=== PATIENT | male | born 1985 ===

== ENCOUNTER 2020-07-20 15:08 | Outpatient (CLI) | payer OTHER ==
--- NOTE | 2020-07-20 16:49 | Ultrasound Report ---
ULTRASOUND SCROTUM INDICATION / CLINICAL INFORMATION: RIGHT TESTICULAR PAIN. COMPARISON: None available. FINDINGS -- RIGHT TESTIS: Size = 4.4 x 2.1 x 2.8 cm. - Appearance: There is microlithiasis. - Cyst or Mass: None. - Color Doppler Flow: No significant abnormality. EPIDIDYMIS: Epididymal head cysts are present, largest measuring up to 9 mm. Additionally, there is a 7 mm rounded area in the epididymal tail, isoechoic to the adjacent epididymal parenchyma. HYDROCELE: None. VARICOCELE: None demonstrated. FINDINGS -- LEFT TESTIS: Size = 4.3 x 2.0 x 3.1 cm. - Appearance: There is microlithiasis. - Cyst or Mass: None. - Color Doppler Flow: No significant abnormality. EPIDIDYMIS: 1.3 cm epididymal head cyst. HYDROCELE: None. VARICOCELE: None demonstrated. ADDITIONAL FINDINGS: None. IMPRESSION: 1. 7 mm rounded isoechoic area in the epididymal tail. This is most likely benign and may reflect an adenomatoid tumor. Urology consultation is recommended. 2. Benign bilateral epididymal head cysts. 3. Testicular microlithiasis. This is a nonspecific finding and may be benign, though there is a repo rted association with germ cell tumors. Consider continued clinical and/or sonographic surveillance, as clinically indicated. Signer Name: Braulio Caballero MD Signed: 07/20/2020 4:45 PM Workstation Name: [id number]
== END 2020-07-20 15:09 | disposition home or self-care (01) ==
LOC: US 15:08
PROVIDERS: ATTEND Nurse Practitioner Family
DX: N50.3 Cyst of epididymis (principal)
CPT/HCPCS: 93975

== ENCOUNTER 2021-08-10 11:37 | Emergency (ER) | payer OTHER ==
[2021-08-10] MEDS ORDERED: CYCLOBENZAPRINE 10 MG TAB PO ONE (14:33)
[2021-08-10] MEDS ORDERED: ACETAMINOPHEN W/CODEINE 300-30 MG TAB PO ONE (14:33)
[2021-08-10] MEDS ORDERED: predniSONE 20 MG TAB PO ONE (14:33)
[2021-08-10] MEDS ORDERED: KETOROLAC 10 MG TAB PO ONE (14:33)
--- NOTE | 2021-08-10 15:48 | XRay Report ---
Lumbar spine INDICATION: Fall with pain FINDINGS: The lumbar spine alignment appears normal. No acute fracture or dislocation is identified. Sacrum and sacroiliac joints appear normal. Signer Name: Lamin Ayala MD Signed: 08/10/2021 3:43 PM Workstation Name: [id number]
--- NOTE | 2021-08-10 16:00 | Emergency Department Report ---
ED Back Pain/Injury HPI - General Chief Complaint: Back Pain/Injury Stated Complaint: BACK PAIN Time Seen by Provider: 08/10/21 14:13 Source: patient Limitations: No Limitations - History of Present Illness Initial Comments: 36-year-old [place] male presents to the emergency department with 1-1/2-week history of worsening lower back pain. He states that he fell 1-1/2 weeks ago and pain has been getting worse since then. He denies any saddle paresthesia or urinary symptoms. He states that he was seen by chiropractor yesterday without improvement of symptoms. He states that pain is mostly to the left side. He denies fever, abdominal pain. MD Complaint: back pain, back injury, fall -: Gradual, week(s) Similar Symptoms Previously: No (1.5) Place: home Radiation: left leg Severity: severe Severity scale (0 -10): 10 Quality: burning, aching Consistency: constant Worsens With: movement, walking Context: fall Associated Symptoms: denies: weakness, chest pain, numbness, difficulty walking, cough, difficulty urinating, diaphoresis, incontinence, fever/chills, constipat ion, abdominal pain, loss of appetite, malaise, nausea/vomiting, rash, seizure, shortness of breath, syncope - Related Data Previous Rx's Medication Instructions Recorded Last Taken Type Cyclobenzaprine [Flexeril] 10 mg PO TID PRN #21 tab 08/10/21 Unknown Rx Lidocaine [Lidoderm] 1 each TP Q12HR PRN #10 patch 08/10/21 Unknown Rx Naproxen [Naprosyn] 500 mg PO BID #14 tab 08/10/21 Unknown Rx Allergies Allergy/AdvReac Type Severity Reaction Status Date / Time No Known Allergies Allergy Unverified 07/20/20 15:08 ED Review of Systems ROS: Stated complaint: BACK PAIN Other details as noted in HPI Comment: All other systems reviewed and negative Constitutional: denies: chills, diaphoresis, fever, malaise, weakness Eyes: denies: eye pain ENT: denies: ear pain, throat pain Respiratory: denies: cough, shortness of breath, SOB with exertion Cardiovascular: denies: chest pain, palpitations, dyspnea on exertion, ortho pnea, edema, syncope Endocrine: no symptoms reported Gastrointestinal: denies: abdominal pain, nausea, vomiting, diarrhea, hematemesis, melena, hematochezia Genitourinary: denies: urgency, dysuria, frequency, hematuria, discharge, testicular pain Musculoskeletal: back pain. denies: joint swelling, arthralgia, myalgia Neurological: denies: headache, weakness Psychiatric: denies: anxiety, depression Hematological/Lymphatic: denies: easy bleeding, easy bruising ED Past Medical Hx - Medications Home Medications: Home Medications Medication Instructions Recorded Confirmed Last Taken Type Cyclobenzaprine [Flexeril] 10 mg PO TID PRN #21 tab 08/10/21 Unknown Rx Lidocaine [Lidoderm] 1 each TP Q12HR PRN #10 patch 08/10/21 Unknown Rx Naproxen [Naprosyn] 500 mg PO BID #14 tab 08/10/21 Unknown Rx ED Physical Exam - General Limitations: No Limitations General appearance: alert, in no apparent distress - Head Head exam: Present: atraumatic, normocephalic - Eye Eye exam: Present: normal appearance. Absent: conjunctival injection - Neck Neck exam: Present: normal inspection, full ROM. Absent: tenderness - Respiratory Respiratory exam: Present: normal lung sounds bilaterally. Absent: respiratory distress, wheezes, rales, rhonchi, stridor, chest wall tenderness, accessory muscle use - Cardiovascular Cardiovascular Exam: Present: regular rate, normal heart sounds - GI/Abdominal GI/Abdominal exam: Present: soft, normal bowel sounds. Absent: distended, tenderness, guarding, rebound, rigid - Extremities Exam Extremities exam: Present: normal inspection, full ROM - Back Exam Back exam: Present: normal inspection, full ROM, tenderness (Left lower), paraspinal tenderness. Absent: CVA tenderness (R), CVA tenderness (L), vert ebral tenderness - Neurological Exam Neurological exam: Present: alert, oriented X3 - Psychiatric Psychiatric exam: Present: normal affect, normal mood - Skin Skin exam: Present: warm, dry, intact, normal color ED Course Vital Signs 08/10/21 08/10/21 08/10/21 12:27 15:12 16:34 Temperature 98.1 F Pulse Rate 77 91 H Respiratory 16 14 20 Rate Blood Pressure 141/95 Blood Pressure 123/74 [Left] O2 Sat by Pulse 95 98 Oximetry ED Medical Decision Making - Radiology Data Radiology results: report reviewed X-ray lumbar sacral spine The lumbar spine alignment appears normal. No acute fracture or dislocation is identified. Sacral iliac joint appears normal. - Medical Decision Making 36-year-old [place] male presents to the emergency department with 1-1/2-week history of worsening lower back pain. He states that he fell 1-1/2 weeks ago and pain has been getting worse since then. He denies any saddle paresthesia or urinary symptoms. He states that he was seen by chiropractor yesterday without improvement of symptoms. He states that pain is mostly to the left side. He denies fever, abdominal pain X-ray of lumbar spine without any acute findings noted. Patient will be treated with anti-inflammatories and muscle relaxant. Pain improved after medication given in the ER. He was advised to take medication as prescribed and follow-up with primary care provider for further evaluation and if no improvement or worsening symptoms. He verbalized understanding of and agreement with plan of care. Critical care attestation.: If time is entered above; I have spent that time in minutes in the direct care of this critically ill patient, excluding procedure time. ED Disposition Clinical Impression: Back pain Qualifiers: Back pain location: low back pain Chronicity: acute Back pain laterality: left Sciatica presence: without sciatica Qualified Code(s): M54.50 - Low back pain, unspecified Disposition: 01 HOME / SELF CARE / HOMELESS Is pt being admited?: No Does the pt Need Aspirin: No Condition: Stable Instructions: Acute Back Pain, Adult, Pain Without a Known Cause Additional Instructions: Take medications as prescribed. Follow-up with primary care provider if no improvement or worsening symptoms. Prescriptions: Cyclobenzaprine [Flexeril] 10 mg PO TID PRN #21 tab PRN Reason: Muscle Spasm Lidocaine [Lidoderm] 1 each TP Q12HR PRN #10 patch PRN Reason: Pain, Moderate (4-6) Naproxen [Naprosyn] 500 mg PO BID #14 tab Referrals: IDALIA HODGE MD [Staff Physician] - 3-5 Days Time of Disposition: 16:00
[2021-08-10 16:36] VITALS: BP 141/95
== END 2021-08-10 16:36 | disposition home or self-care (01) ==
LOC: ED 11:37
DX: M54.50 Low back pain, unspecified (principal); Z79.899 Other long term (current) drug therapy
CPT/HCPCS: 72110; 99283